=== PATIENT | female | born 1995 | race Caucasian/White ===

== ENCOUNTER 2017-07-23 15:12 | Emergency (ER) | payer OTHER ==
[~2017-07-23] VITALS: Ht 157.5 cm; Wt 57.0 kg
[2017-07-23 15:16] VITALS: BP 131/77; TEMP 36.8; Ht 157.5 cm; Wt 57.0 kg
--- NOTE | 2017-07-23 16:18 | EMERGENCY ROOM VISIT NOTE ---
History First contact with patient: 15:31 Chief Complaint: ED VAG BLEEDING Stated Complaint: MASS APPEARS TO BE COMING OUT OF VAGINA History of Present Illness The patient is a 21 year old female who presents to the Emergency Room with complaints of tissue protruding from her vaginal opening, and difficulty with tampon insertion. The patient reports that she is now on day 3 of menstruation. The patient denies any significant pain when attempting to insert the tampon. She has not noticed any abnormal drainage from the vagina. Last coitus was approximately 5 weeks ago. She denies . The patient denies any prior history of structural problems, dyspareunia or dysmenorrhea. Review of Systems 6 system review was performed and was negative except for pertinent positives and negatives as indicated in history of present illness Past Medical/Surgical History Medical Problems: (1) No significant past medical history Surgical Problems: (1) No history of previous surgery Family History Unremarkable Social History Smoking Status: Never Smoker Alcohol Use: occasionally Marital Status: single Occupation Status: [employer] student Physical Exam Vital Signs Date Time Temp Pulse Resp B/P (MAP) Pulse Ox O2 Delivery O2 Flow Rate FiO2 18 15:16 36.8 100 16 131/77 100 Physical Exam CONSTITUTIONAL: Healthy and well nourished. Alert and oriented X 3 with positive affect. HEENT: Normocephalic, atraumatic. Pupils equal, round and reactive. NECK: Full active range of motion without discomfort. RESPIRATORY: Clear to auscultation bilaterally with no wheezing, crackles, rhonchi or stridor. CARDIOVASCULAR: Regular rate and rhythm with no murmurs, rubs or gallops. GASTROINTESTINAL: Bowel sounds present in all quadrants. Abdomen is soft and nontender to palpation. GENITOURINARY: With a female nurse resizer operator present, speculum and bimanual exam were performed. Normal external genitalia with mild protuberance of the vaginal mucosa. There is no thickening or erythema of the labia majora or minora. No abnormal vaginal drainage or malodor. The patient did have a mild discomfort with speculum insertion. The patient has mild dark blood within the vaginal vault. Cervix was visualized with minimal bleeding and no edema. There is no abnormal drainage. Bimanual exam does not show any palpable soft tissue induration or thickening through the labia majora, minora or adnexa. Negative cervical motion tenderness. MUSCULOSKELETAL: Full range of motion of all joints without discomfort. INTEGUMENTARY: No rash or other significant dermatologic conditions noted. NEUROLOGIC: No focal neurologic deficits noted. Medical Decision & Procedures ED Course Patient history and physical exam were performed. Nurse's notes were reviewed. Vital signs were reviewed and were normal. Speculum and bimanual pelvic exam were performed with a female nurse resizer operator present. The patient was advised that the swelling she is seeing is normal physiology during menstruation. I spent approximately 20 minutes in education regarding her inflammation. The patient was advised that this inflammation should regress toward midcycle. The patient was encouraged to follow-up with [employer] [employer] if the swelling persists. She is welcome to return to the emergency department for any progressively worsening swelling, pain, vaginal drainage, fever or other concerns. The patient was happy with plan of care, and denied any discomfort at the time of discharge. Medical Decision Medication Reconcilliation Current Medication List: was personally reviewed by me Blood Pressure Screening Patient's blood pressure: Normal blood pressure Impression Primary Impression: Vaginitis Departure Information Dispostion Home / Self-Care Forms HOME CARE DOCUMENTATION FORM, IMPORTANT VISIT INFORMATION Patient Instructions My [facility] Additional Instructions If the thickened tissue persists in 2 weeks, suggest follow-up with [employer] for further reevaluation. Return to the emergency department if this tissue progressively increases in size, you are unable to insert the tampon or if you start to notice any worsening bleeding/drainage from the vaginal opening. Problem Qualifiers Primary Impression: Vaginitis Chronicity: acute Qualified Codes: N76.0 - Acute vaginitis
[2017-07-23 16:37] VITALS: PULSE 90; O2SAT 99
== END 2017-07-23 16:38 | disposition home or self-care (01) ==
LOC: C.EDB 15:15 → C.EDA 16:38
DX: N76.0 Acute vaginitis (principal)